=== PATIENT | female | born 1955 | race Caucasian/White ===

== ENCOUNTER → 2017-05-21 12:57 | Outpatient (CLI) | payer BC | END | disposition home or self-care (01) | LOC: D.MAMMO 10:30 | DX: R92.2 Inconclusive mammogram (principal) ==

== ENCOUNTER → 2018-08-19 07:24 | Outpatient (CLI) | payer BC | END | disposition home or self-care (01) | LOC: D.US 07:24 | DX: R10.9 Unspecified abdominal pain (principal) ==

== ENCOUNTER 2018-11-24 10:48 | Emergency (ER) | payer BC ==
[~2018-11-24] VITALS: Ht 170.2 cm; Wt 65.9 kg
[2018-11-24 11:05] VITALS: BP 128/90; Ht 170.2 cm; Wt 65.9 kg
[2018-11-24] MEDS ORDERED: ELAVIL10 MG PO (11:07)
[2018-11-24 12:09] LABS: BASOPHILS 0.2 % (0-2); EOSINOPHILS 0.2 % (0-7); HEMATOCRIT 43.9 % (36.0-48.0); IMMATURE GRANULOCYTES 0.3 % (0-5); LYMPHOCYTES 14.1 % (15-50); MCH 30.1 pg (26.0-34.0); MCHC 34.2 g/dL (31.0-37.0); MEAN PLATELET VOLUME 9.7 fL (7.4-10.4); MONOCYTES 4.5 % (2-11); NEUTROPHILS 80.7 % (40-80); PLATELET COUNT 273 10x3/uL (130-400); RBC 4.99 10x6/uL (4.00-5.40); WBC 12.6 10x3/uL (4.8-10.8)
[2018-11-24 12:10] LABS: APPEARANCE CLEAR (CLEAR); BILIRUBIN NEGATIVE (NEGATIVE); COLOR STRAW (YELLOW); GLUCOSE NEGATIVE (NEGATIVE); KETONE NEGATIVE (NEGATIVE); NITRITE NEGATIVE (NEGATIVE); PROTEIN NEGATIVE (NEGATIVE); SPECIFIC GRAVITY 1.005 (1.005-1.020); UROBILINOGEN NORMAL (NORMAL)
[2018-11-24 12:30] LABS: ALBUMIN 4.2 g/dL (3.4-5.0); ALKALINE PHOSPHATASE 84 U/L (46-116); ALT (SGPT) 80 U/L (10-68); AMYLASE - SERUM 28 U/L (25-115); BILIRUBIN - TOTAL 0.38 mg/dL (0.2-1.3); CALC OSMOLALITY 284 mosm/kg (275-300); CALCIUM 9.3 mg/dL (8.5-10.1); CARBON DIOXIDE 28.1 mmol/L (21.0-32.0); CHLORIDE - SERUM 104 mmol/L (98-107); CREATININE - SERUM 0.7 mg/dL (0.6-1.3); GLUCOSE 122 mg/dL (74-106); LIPASE 145 U/L (73-393); POTASSIUM - SERUM 4.1 mmol/L (3.5-5.1); PROTEIN - SERUM 7.9 g/dL (6.4-8.2); SODIUM 142 mmol/L (136-145); UREA NITROGEN 14 mg/dL (7-18); eGFR NON AFRICAN AMERICAN 90 mL/min (90-120)
[2018-11-24] MEDS ORDERED: BENTYL 20 MG TA20 MG PO (14:45)
[2018-11-24] MEDS ORDERED: ZOFRAN ODT4 MG/UDTAB PO (14:45)
== END 2018-11-24 15:30 | disposition home or self-care (01) ==
LOC: D.ER 10:48
PROVIDERS: Family Medicine
DX: K52.9 Noninfective gastroenteritis and colitis, unspecified (principal); F17.200 Nicotine dependence, unspecified, uncomplicated; R11.10 Vomiting, unspecified

== ENCOUNTER 2019-01-18 19:00 | Outpatient (CLI) | payer BC ==
[2018-11-24 11:05] VITALS: BMI 22.7
[~2019-01-18 19:00] MED LIST: BENTYL 20 MG TA20 MG PO; ELAVIL10 MG PO; ZOFRAN ODT4 MG/UDTAB PO
== END 2019-01-18 23:59 | disposition home or self-care (01) ==
LOC: D.MAMMO 19:00
PROVIDERS: ATTEND Family Medicine
DX: Z12.31 Encounter for screening mammogram for malignant neoplasm of breast (principal)

== ENCOUNTER → 2019-11-29 13:29 | Outpatient (CLI) | payer BC ==
[2018-11-24 11:05] VITALS: BMI 22.7
== END | disposition home or self-care (01) ==
LOC: D.HCCECHO 13:29
PROVIDERS: ATTEND Internal Medicine Interventional Cardiology
DX: I10 Essential (primary) hypertension (principal); I20.9 Angina pectoris, unspecified

== ENCOUNTER → 2020-08-14 13:00 | Outpatient (CLI) | payer BC ==
[2018-11-24 11:05] VITALS: BMI 22.7
== END | disposition home or self-care (01) ==
LOC: D.MAMMO 07-17 13:00
PROVIDERS: ATTEND Family Medicine
DX: Z12.31 Encounter for screening mammogram for malignant neoplasm of breast (principal)